=== PATIENT | female | born 1950 | race Caucasian/White ===

== ENCOUNTER 2019-04-15 05:48 | Emergency (ER) | payer MEDICARE ==
[2019-04-15] MEDS ORDERED: Fleet Enema 133 ML BOT ONE (06:23)
== END 2019-04-15 06:42 | disposition home or self-care (01) ==
LOC: MADERS 05:48
DX: K56.41 Fecal impaction (principal); E03.9 Hypothyroidism, unspecified; K21.9 Gastro-esophageal reflux disease without esophagitis; F17.210 Nicotine dependence, cigarettes, uncomplicated; Z79.899 Other long term (current) drug therapy
CPT/HCPCS: 99283

== ENCOUNTER 2020-01-20 21:38 | Emergency (ER) | payer MEDICARE ==
[2020-01-20 22:27] LABS: #Basophils 0.1 thou/uL (0.0-0.2); #Eosinphils 0.4 thou/uL (0.0-0.7); #Lymphocytes 2.7 thou/uL (1.20-3.40); #Monocytes 0.6 thou/uL (0.11-0.59); #Neutrophils 3.1 thou/uL (1.40-6.50); %Lymphocytes 38.9 % (21.0-51.0); %Monocytes 8.5 % (0.0-10.0); %Neutrophils 45.6 % (42.0-75.0); Hemoglobin 12.4 g/dL (12.0-16.0); Mean Corpuscular HGB CONC 32.9 g/dL (32.0-36.0); Mean Corpuscular Hemoglobin 29.7 pg (27.0-31.0); Mean Corpuscular Volume 90.2 fL (78.0-98.0); Mean Platelet Volume 6.7 fL (7.4-10.4); Platelet Count 265 thou/uL (130-400); RBC Distribution Width 12.2 % (11.5-14.5); Red Blood Cell (RBC) Count 4.19 mill/uL (4.20-5.40); White Blood Cell (WBC) Count 6.9 thou/uL (4.8-10.8)
[2020-01-20] MEDS ORDERED: Metoprolol Tartrate 50 MG TAB ONE (22:45)
[2020-01-20 22:49] LABS: ALT (SGPT) 11 U/L (8-55); AST (SGOT) 13 U/L (5-34); Alkaline Phosphatase 114 U/L (40-110); Anion Gap 14 mmol/L (10-20); BUN (Urea Nitrogen) 17 mg/dL (9.8-20.1); Bilirubin, Total 0.2 mg/dL (0.2-1.2); CK (CPK) 164 U/L (29-168); Calc. Creatinine Clearance 0 mL/min (70-130); Calcium 8.6 mg/dL (7.8-10.44); Carbon Dioxide 25 mmol/L (23-31); Chloride 105 mmol/L (98-107); Estimated GFR-MDRD 80; Globulin 2.3 g/dL (2.4-3.5); Glucose 123 mg/dL (80-115); Potassium 3.1 mmol/L (3.5-5.1); Protein, Total 6.3 g/dL (6.0-8.3); Sodium 141 mmol/L (136-145)
[2020-01-20] MEDS ORDERED: Potassium Chloride 20 MEQ TAB ONE (23:27)
--- NOTE | 2020-01-20 23:42 | RAD ---
EXAM: CHEST ONE VIEW HISTORY: Chest pain COMPARISON: 04/05/2019 FINDINGS: Cardiac silhouette is magnified by projection. Pulmonary vasculature is within normal limits. The chhaya gs are clear. Vascular calcifications are seen in the thoracic aorta. No interval change from prior study. IMPRESSION: No acute cardiopulmonary process.
== END 2020-01-20 23:31 | disposition home or self-care (01) ==
LOC: MADERS 21:38
DX: I10 Essential (primary) hypertension (principal); R07.9 Chest pain, unspecified; E03.9 Hypothyroidism, unspecified; K21.9 Gastro-esophageal reflux disease without esophagitis; G40.909 Epilepsy, unspecified, not intractable, without status epilepticus; F17.210 Nicotine dependence, cigarettes, uncomplicated; Z79.899 Other long term (current) drug therapy
CPT/HCPCS: 71045; 80053; 82550; 84484; 85025; 93005

== ENCOUNTER 2022-10-08 14:34 | Emergency (ER) | payer MEDICARE ==
[~2022-10-08 14:34] MED LIST: Iopamidol 370 76% 100 ML VIAL ONE; Sodium Chloride 0.9% 500 ML BAG ONE
[2022-10-08] MEDS ORDERED: Acetaminophen 500 MG TAB ONE (14:52)
[2022-10-08 15:37] LABS: #Basophils 0.2 thou/uL (0.0-0.2); #Lymphocytes 0.6 thou/uL (1.20-3.40); #Monocytes 0.6 thou/uL (0.11-0.59); #Neutrophils 8.8 thou/uL (1.40-6.50); %Basophils 1.7 % (0.0-1.0); %Monocytes 5.8 % (0.0-10.0); %Neutrophils 86.6 % (42.0-75.0); Hemoglobin 11.7 g/dL (12.0-16.0); Mean Corpuscular HGB CONC 34.6 g/dL (32.0-36.0); Mean Corpuscular Hemoglobin 31.4 pg (27.0-31.0); Mean Corpuscular Volume 90.5 fl (78.0-98.0); Mean Platelet Volume 8.9 fL (7.4-10.4); Platelet Count 179 10x3/uL (130-400); RBC Distribution Width 11.6 % (11.5-14.5); Red Blood Cell (RBC) Count 3.72 mill/uL (4.20-5.40); White Blood Cell (WBC) Count 10.2 10x3/uL (4.8-10.8)
[2022-10-08 15:50] LABS: ALT (SGPT) 8 U/L (8-55); AST (SGOT) 17 U/L (5-34); Albumin 3.8 g/dL (3.4-4.8); Alkaline Phosphatase 87 U/L (40-110); Anion Gap 17 mmol/L (10-20); BUN (Urea Nitrogen) 15 mg/dL (9.8-20.1); Bilirubin, Total 0.4 mg/dL (0.2-1.2); Calc. Creatinine Clearance 0 mL/min (70-130); Calcium 8.3 mg/dL (7.8-10.44); Carbon Dioxide 21 mmol/L (23-31); Chloride 99 mmol/L (98-107); Estimated GFR 82; Globulin 2.2 g/dL (2.4-3.5); Glucose 100 mg/dL (80-115); Magnesium 1.1 mg/dL (1.6-2.6); Sodium 134 mmol/L (136-145)
[2022-10-08 15:52] LABS: Lipase Less than 4 U/L (8-78); Potassium 2.6 mmol/L (3.5-5.1)
[2022-10-08] MEDS ORDERED: Sodium Chloride 0.9% 100 ML ONE (16:09)
[2022-10-08] MEDS ORDERED: Magnesium 2 GM/50 ML BAG (IN WATER) ONE (16:09)
[2022-10-08] MEDS ORDERED: Sodium Chloride 0.9% 250 ML 250 ML ONE (16:09)
[2022-10-08] MEDS ORDERED: Azithromycin 500 MG VIAL ONE (16:09)
[2022-10-08] MEDS ORDERED: cefTRIAXone (ROCEPHIN) 2 GM VIAL ONE (16:09)
[2022-10-08] MEDS ORDERED: Potassium Chloride 20 MEQ TAB ONE (16:09)
[2022-10-08] MEDS ORDERED: NS 0.9% w/ 40 MEQ KCL 1,000 ML IV ONE (17:32)
[2022-10-08 17:52] LABS: Bilirubin Negative (Negative); Blood, Urine Trace (Negative); Clarity Clear (Clear); Glucose, Urine (Dipstick) Negative (Negative); Ketone, Urine Negative (Negative); Leukocyte Negative (Negative); Nitrite Negative (Negative); Protein, Urine (Dipstick) Negative (Neg-Trace); Urobilinogen 0.2 mg/dL (Less than 2); pH, Urine 6.5 (5.0-9.0)
[2022-10-08 17:56] LABS: Bacteria/HPF 1+ HPF (None Seen); RBC/HPF 0-3 HPF (0-3); Squamous Epithelial 0-3 HPF (0-3); WBC/HPF 0-3 HPF (0-3)
[2022-10-08 18:33] LABS: SARS-CoV-2 NAA Rapid Test Not Detected (NotDetected)
[2022-10-08] MEDS ORDERED: Sodium Chloride 0.9% 500 ML ONE (18:45)
[2022-10-08] MEDS ORDERED: metroNIDAZOLE 500 MG/100 ML BAG ONE (18:45)
== END 2022-10-08 19:24 | disposition short-term general hospital (02) ==
LOC: SUATTDRO 14:34 → MADERS 14:34
PROVIDERS: ADMIT Family Medicine; ATTEND Family Medicine
DX: J18.9 Pneumonia, unspecified organism (principal); J96.00 Acute respiratory failure, unspecified whether with hypoxia or hypercapnia; E87.6 Hypokalemia; E83.42 Hypomagnesemia; K57.92 Diverticulitis of intestine, part unspecified, without perforation or abscess without bleeding; E03.9 Hypothyroidism, unspecified; K21.9 Gastro-esophageal reflux disease without esophagitis; I10 Essential (primary) hypertension; F17.210 Nicotine dependence, cigarettes, uncomplicated; Z79.899 Other long term (current) drug therapy
CPT/HCPCS: 71045; 74177; 80053; 81003; 81015; 83605; 83690; 83735; 83880; 84484; 85025; 87040; 87086; 93005; 96365; 96367; 96368; 96375; J0456; J0696; J3475; J3480; J3490; J7030; J7050; Q9967; U0002